=== PATIENT | male | born 1990 | race Caucasian/White ===

== ENCOUNTER 2021-12-30 17:07 | Emergency (ER) | payer BC, OTHER ==
[2021-12-30] MEDS ORDERED: Lidocaine 1% with EPINEPHrine 1:100,000 10 ML MDV INFILT ONE (17:08)
[2021-12-30] MEDS ORDERED: Ibuprofen 600 MG Tab PO ONE (17:20)
[2021-12-30] MEDS ORDERED: Bacitracin Oint 1 GM U/D Packet TOP ONE (17:38)
== END 2021-12-30 18:20 | disposition home or self-care (01) ==
LOC: FB.ED 17:07
DX: S52.552A Other extraarticular fracture of lower end of left radius, initial encounter for closed fracture (principal); S01.01XA Laceration without foreign body of scalp, initial encounter; X50.9XXA Other and unspecified overexertion or strenuous movements or postures, initial encounter
CPT/HCPCS: 12002; 73110-LT; 99284-25; A9270-GY